=== PATIENT | male | born 1950 | race African-American/Black ===

== ENCOUNTER 2025-04-28 14:43 | Inpatient (IN) | payer MEDICARE ==
[~2025-04-28] VITALS: Ht 188 cm; Wt 68.0 kg
[~2025-04-28 14:43] MED LIST: AMLO10TA80 PO; ATOR40TA70 PO; CALC0.253 PO; FERR325T30 PO; ISOS30TA91 PO; LABE200T9 PO; MEMA5TAB16 PO
[2025-04-28 15:24] LABS: BASOPHILS % 1.0 % (0.0-2.0); EOSINOPHILS % 2.8 % (0.0-5.0); HEMATOCRIT. 23.3 % (42.0-52.0); HEMOGLOBIN. 7.8 g/dL (14.0-18.0); LYMPHOCYTES % 18.0 % (20.0-50.0); MEAN PLATELET VOLUME 7.0 fl (7.4-10.4); MONOCYTES % 8.6 % (2.0-8.0); NEUTROPHILS % 69.6 % (40.0-76.0); PLATELET 161 x1000/uL (130-400); RED BLOOD CELL COUNT 2.60 mill/uL (4.7-6.1); RED CELL DISTRIBUTION WIDTH 15.5 % (11.6-14.6)
[2025-04-28 15:35] LABS: UREA NITROGEN BLOOD 73 mg/dL (9-23)
[2025-04-28 15:36] LABS: PROTEIN TOTAL 6.2 g/dL (6.0-8.3)
[2025-04-28 15:37] LABS: ASPARTATE AMINOTRANSFERASE 16 IU/L (<34); BILIRUBIN DIRECT 0.1 mg/dL (<=3.0); BILIRUBIN TOTAL 0.4 mg/dL (0.1-1.0)
[2025-04-28 15:40] LABS: CREATININE 7.3 mg/dL (0.6-1.3)
[2025-04-28 15:41] LABS: TROPONIN I HIGH SENSITIVITY 126 ng/L (3.0-53)
[2025-04-28 17:48] LABS: TROPONIN I HIGH SENSITIVITY 113 ng/L (3.0-53)
[2025-04-28] MEDS: MAGNESIUM 2 G PREMIX 50 ML IV SCH (20:35)
[2025-04-28] MEDS ORDERED: IPRATROPIUM/ALBUTEROL 0.5-3(2.5)MG/3ML NEB HHN PRN (21:15)
[2025-04-28] MEDS ORDERED: ACETAMINOPHEN 325MG TABLET PO PRN ×2 (21:15)
[2025-04-28] MEDS ORDERED: ONDANSETRON HCL 4MG/2ML INJ IV PRN (21:15)
[2025-04-28] MEDS ORDERED: SODIUM CHLORIDE 0.45% 1,000 ML IV SCH (21:15)
[2025-04-28 23:00] VITALS: BP 145/81; PULSE 70; RESP 18; TEMP 36.418
[2025-04-29 04:00] VITALS: BP 221/115; PULSE 87; RESP 19; TEMP 35.4; O2SAT 97
[2025-04-29] MEDS ORDERED: FERROUS SULFATE 325MG TABLET PO SCH (07:15)
[2025-04-29 07:26] LABS: T4 FREE 1.44 ng/dL (0.89-1.76)
[2025-04-29 07:28] LABS: BASOPHILS % 0.7 % (0.0-2.0); EOSINOPHILS % 1.1 % (0.0-5.0); HEMATOCRIT. 29.0 % (42.0-52.0); HEMOGLOBIN. 9.6 g/dL (14.0-18.0); LYMPHOCYTES % 9.9 % (20.0-50.0); MEAN PLATELET VOLUME 7.4 fl (7.4-10.4); MONOCYTES % 5.8 % (2.0-8.0); NEUTROPHILS % 82.5 % (40.0-76.0); PLATELET 187 x1000/uL (130-400); RED BLOOD CELL COUNT 3.25 mill/uL (4.7-6.1); RED CELL DISTRIBUTION WIDTH 15.2 % (11.6-14.6)
[2025-04-29 07:29] LABS: BILIRUBIN TOTAL 0.5 mg/dL (0.1-1.0)
[2025-04-29 07:30] LABS: PROTEIN TOTAL 6.9 g/dL (6.0-8.3); UREA NITROGEN BLOOD 77 mg/dL (9-23)
[2025-04-29 07:31] LABS: ASPARTATE AMINOTRANSFERASE 24 IU/L (<34)
[2025-04-29 07:32] LABS: BILIRUBIN DIRECT 0.1 mg/dL (<=3.0); PHOSPHORUS 5.1 mg/dL (2.5-4.9)
[2025-04-29 08:00] VITALS: BP 160/106; PULSE 64; RESP 16; TEMP 36.2; O2SAT 97
[2025-04-29 08:05] LABS: CREATININE 7.2 mg/dL (0.6-1.3)
[2025-04-29] MEDS ORDERED: LABETALOL 5MG/ML 4ML INJ IV NR (08:45)
[2025-04-29] MEDS ORDERED: ASPIRIN 81MG EC TABLET PO SCH (09:00)
[2025-04-29] MEDS: MEMANTINE HCL 5MG TABLET PO SCH (09:00)
[2025-04-29] MEDS ORDERED: CALCITRIOL 0.25MCG CAPSULE PO SCH (09:00)
[2025-04-29] MEDS: POLYETHYLENE GLYCOL 3350 (17GM) 1 DOSE PACK PO SCH (09:00)
[2025-04-29] MEDS: SODIUM CHLORIDE 0.45% 1,000 ML IV SCH (09:30)
[2025-04-29] MEDS: TAMSULOSIN HCL 0.4MG SR CAPSULE PO SCH (10:56)
[2025-04-29] MEDS: AMLODIPINE 5MG TABLET PO SCH (10:56)
[2025-04-29] MEDS: FAMOTIDINE 20MG TABLET PO SCH (10:57)
[2025-04-29] MEDS: ISOSORBIDE MONONITRATE 30MG TABLET SR 24HR PO SCH (10:57)
[2025-04-29 12:00] VITALS: BP 130/75; PULSE 90; RESP 18; TEMP 36.3; O2SAT 96
[2025-04-29 13:56] LABS: INR 1.0
[2025-04-29 14:05] LABS: FOLIC ACID (FOLATE) SERUM 5.94 ng/mL (>5.38); VITAMIN B12 SERUM 600 pg/mL (211-911)
[2025-04-29 14:07] LABS: TROPONIN I HIGH SENSITIVITY 161 ng/L (3.0-53)
[2025-04-29] MEDS ORDERED: LIDOCAINE 2% 6ML GLYDO MM NR (15:00)
[2025-04-29] MEDS ORDERED: MORPHINE SULFATE 2 MG/ML INJ (NOT FOR IM USE) IV ONE (15:45)
[2025-04-29] MEDS: LORAZEPAM 2MG/ML UD SYRINGE IV SCH (15:57)
[2025-04-29 16:00] VITALS: BP 116/78; PULSE 78; RESP 18; TEMP 36.4; O2SAT 98
[2025-04-29 20:00] VITALS: BP 155/92; PULSE 64; RESP 16; TEMP 36.3; O2SAT 99
[2025-04-29] MEDS: IPRATROPIUM/ALBUTEROL 0.5-3(2.5)MG/3ML NEB HHN SCH (20:00)
[2025-04-29] MEDS: ATORVASTATIN CALCIUM 40MG TABLET PO SCH (22:38)
[2025-04-29] MEDS: EPOETIN ALFA-EPBX 4,000 UNITS/ML VIAL SUBCUT NR (22:39)
[2025-04-30] VITALS (8 sets, daily range): BP systolic 144–164; BP diastolic 69–96; PULSE 61–75; RESP 15–18; TEMP 34.5–36.6; O2SAT 93–100
[2025-04-30 03:55] LABS: CLARITY URINE CLEAR (CLEAR); COLOR URINE YELLOW (YELLOW); GLUCOSE URINE NEGATIVE (NEGATIVE); KETONES URINE NEGATIVE (NEGATIVE); LEUKOCYTE ESTERASE URINE NEGATIVE (NEGATIVE); NITRITE URINE NEGATIVE (NEGATIVE); OCCULT BLOOD URINE TRACE (NEGATIVE); PH URINE 6.0 (4.5-8.0); PROTEIN URINE NEGATIVE (NEGATIVE); SPECIFIC GRAVITY URINE 1.001 (1.005-1.030); UROBILINOGEN URINE 0.2 E.U./dL (0.2-1.0)
[2025-04-30 04:06] LABS: *AMPHETAMINES SCREEN URINE NEGATIVE (NEGATIVE); *BARBITURATES SCREEN URINE NEGATIVE (NEGATIVE); *BENZODIAZEPINES SCREEN URINE NEGATIVE (NEGATIVE); *COCAINE SCREEN URINE NEGATIVE (NEGATIVE); CANNABINOID URINE SCREEN NEGATIVE (NEGATIVE); ECSTASY MDMA SCREEN URINE NEGATIVE (NEGATIVE); METHADONE URINE SCREEN NEGATIVE (NEGATIVE); OPIATES URINE SCREEN NEGATIVE (NEGATIVE); PHENCYCLIDINE URINE SCREEN NEGATIVE (NEGATIVE)
[2025-04-30] MEDS: HYDRALAZINE 20MG/ML VIAL IV PRN (04:53)
[2025-04-30 05:33] LABS: WBC URINE 0-2 /hpf (0-2)
[2025-04-30 05:40] LABS: BACTERIA URINE NONE SEEN; RBC URINE 0-2 /hpf (0-2); SQUAMOUS EPITHELIAL CELL URINE FEW /lpf (RARE/1+)
[2025-04-30 06:00] LABS: UREA NITROGEN BLOOD 75 mg/dL (9-23)
[2025-04-30 06:02] LABS: PHOSPHORUS 5.8 mg/dL (2.5-4.9)
[2025-04-30 06:07] LABS: CREATININE 7.5 mg/dL (0.6-1.3)
[2025-04-30 09:43] LABS: LDL CHOLESTEROL 139.0 mg/dL (5-100); TRIGLYCERIDE 69.0 mg/dL (0-150)
[2025-04-30 09:49] LABS: T4 FREE 1.51 ng/dL (0.89-1.76)
[2025-05-01 09:07] LABS: PROSTATE SPECIFIC AG TOTAL 6.3 ng/mL (0.0-4.0)
== END 2025-04-30 22:40 | disposition hospice, inpatient (51) | DRG 281 ==
LOC: ER 14:43 → 5WST 16:38 → EDBEDREQ 16:42 → EDBEDREQTM 17:03 → ENRESERV 21:07
PROVIDERS: ADMIT Internal Medicine; ATTEND Internal Medicine
DX: I21.4 Non-ST elevation (NSTEMI) myocardial infarction (principal); I12.0 Hypertensive chronic kidney disease with stage 5 chronic kidney disease or end stage renal disease; Z66 Do not resuscitate; N18.5 Chronic kidney disease, stage 5; N17.9 Acute kidney failure, unspecified; D64.9 Anemia, unspecified; F03.90 Unspecified dementia, unspecified severity, without behavioral disturbance, psychotic disturbance, mood disturbance, and anxiety; I70.0 Atherosclerosis of aorta; N13.8 Other obstructive and reflux uropathy; E21.3 Hyperparathyroidism, unspecified; I48.91 Unspecified atrial fibrillation; I25.10 Atherosclerotic heart disease of native coronary artery without angina pectoris; N40.1 Benign prostatic hyperplasia with lower urinary tract symptoms; R33.8 Other retention of urine; E78.5 Hyperlipidemia, unspecified; M10.9 Gout, unspecified; N28.1 Cyst of kidney, acquired; K21.9 Gastro-esophageal reflux disease without esophagitis; R00.1 Bradycardia, unspecified; Z86.73 Personal history of transient ischemic attack (TIA), and cerebral infarction without residual deficits; I25.2 Old myocardial infarction; Z79.82 Long term (current) use of aspirin; Z79.899 Other long term (current) drug therapy; Z82.49 Family history of ischemic heart disease and other diseases of the circulatory system; Z88.0 Allergy status to penicillin; Z88.5 Allergy status to narcotic agent; Z88.6 Allergy status to analgesic agent
CPT/HCPCS: 36415; 71045; 74176; 80048; 80061; 80076; 80305; 81003; 82043; 82550; 82570; 82607; 82728; 82746; 83036; 83540; 83550; 83735; 83880; 83970; 84100; 84145; 84153; 84156; 84300; 84439; 84443; 84484; 85025; 85044; 86850; 86900; 93005; 93306; 94070; 94640; 94664; 97162; 97166; 98960; 99285; A4606; J0360; J0885; J2060; J3475